=== PATIENT | female | born 1960 | race African-American/Black ===

== ENCOUNTER 2025-03-26 15:11 | Emergency (ER) | payer OTHER ==
[~2025-03-26] VITALS: Ht 167.6 cm; Wt 95.0 kg
[2025-03-26 15:17] VITALS: O2SAT 97
[2025-03-26 16:26] LABS: TROPONIN I HIGH SENSITIVITY 16 ng/L (3.0-34)
[2025-03-26 17:21] VITALS: BP 172/78; PULSE 86; RESP 16; TEMP 36.6; O2SAT 99
[2025-03-26] MEDS ORDERED: LIDO700A30 TP (17:22)
[2025-03-26] MEDS ORDERED: CYCL10TA21 MT (17:22)
== END 2025-03-26 17:37 | disposition home or self-care (01) ==
LOC: ER 15:11
DX: M54.2 Cervicalgia (principal); E11.9 Type 2 diabetes mellitus without complications; I10 Essential (primary) hypertension; Z79.899 Other long term (current) drug therapy; Z88.8 Allergy status to other drugs, medicaments and biological substances; V89.2XXA Person injured in unspecified motor-vehicle accident, traffic, initial encounter; Y93.89 Activity, other specified; Y92.410 Unspecified street and highway as the place of occurrence of the external cause; Y99.8 Other external cause status
CPT/HCPCS: 36415; 71045; 84484; 93005; 99285